=== PATIENT | male | born 1980 | race Two or more races ===

== ENCOUNTER → 2016-10-16 | Outpatient (CLI) | payer MEDICARE, MEDICAID ==
--- NOTE | 2016-10-16 17:10 | CR ---
EXAMINATION: Pelvis and right hip HISTORY: Osteoarthritis COMPARISON: 06/27/2016 TECHNIQUE: AP view of the pelvis and 2 views of the right hip FINDINGS: Mildly increased sclerosis is noted within the right femoral head, grossly unchanged. Mild subchondral sclerosis noted within the right acetabulum. There is an os acetabuli versus previous s uperior rim injury on the left, unchanged. Bilateral posterior fusion hardware noted. IMPRESSION: 1. Stable sclerotic changes within the proximal right femur with early degenerative changes within t he right hip.
== END ==
LOC: MW.CHORTHO 07:55
PROVIDERS: ATTEND Orthopaedic Surgery
DX: M16.11 Unilateral primary osteoarthritis, right hip (principal)
CPT/HCPCS: 73502; G0463

== ENCOUNTER 2017-02-27 20:32 | Emergency (ER) | payer MEDICARE, MEDICAID ==
--- NOTE | 2017-02-27 21:09 | EDM.PDOC ---
ED HPI GENERAL MEDICAL PROBLEM - General Chief Complaint: ENT Problem Stated Complaint: PAIN EAR CANAL Time Seen by Provider: 02/27/17 20:45 Source of Information: Reports: Patient History Limitations: Reports: No Limitations - History of Present Illness INITIAL COMMENTS - FREE TEXT/NARRATIVE: History of present illness: [36-year-old male presenting with complaints of something crawling in his ear, ear pain on the left indicating that this is going for a few days and it has gotten worse and he is concerned.] Review of systems: As per history of present illness and below otherwise all systems reviewed and negative. Past medical history: As per history of present illness and as reviewed below otherwise noncontributory. Surgical history: As per history of present illness and as reviewed below otherwise noncontributory. Social history: No reported history of drug or alcohol abuse. Family history: As per history of present illness and as reviewed below otherwise noncontributory. Physical exam: HEENT: Atraumatic, normocephalic, pupils reactive, negative for conjunctival pallor or scleral icterus, mucous membranes moist, left ear canal with significant edema throat clear, neck supple, nontender, trachea midline. Lungs: Clear to auscultation, breath sounds equal bilaterally, chest nontender. Heart: S1S2, regular, negative for clicks, rubs, or JVD. Abdomen: Soft, nondistended, nontender. Negative for masses or hepatosplenomegaly. Negative for costovertebral tenderness. Pelvis: Stable nontender. Genitourinary: Deferred. Rectal: Deferred. Extremities: Atraumatic, negative for cords or calf pain. Neurovascular unremarkable. Neuro: Awake, alert, oriented. Cranial nerves II through XII unremarkable. Cerebellum unremarkable. Motor and sensory unremarkable throughout. Exam nonfocal. Patient was seen by his PCP yesterday and received a prescription for this same diagnosis of failed to fill it and comes today thinking that we'll diagnosed with something else. Patient was instructed that this is indeed what was going on that the sooner he started taking the medication the quicker it would be relieved. Discussed with patient that even if the canal swelled shut the medicine to passively drain into the ear and it would absorb through the canal which was imperative. Demonstrated ways of getting the liquid through the canal also could be absorbed clear to the TM patient verbalized understanding and could repeat demonstrate the application and indicated he would go now and have medication felt. Diagnostics: [] Therapeutics: [] Impression: [Otitis externa on the left] Plan: [Anabiotic eardrops] Definitive disposition and diagnosis as appropriate pending reevaluation and review of above. Left Ear Pain Score (Numeric/FACES): 5 - Related Data Allergies Allergy/AdvReac Type Severity Reaction Status Date / Time cefazolin sodium [From Ancef] Allergy Hives Verified 02/27/17 20:35 ketorolac [From Toradol] Allergy Itching Verified 02/27/17 20:35 morphine Allergy Other Verified 02/27/17 20:35 Home Meds: Home Meds Metoprolol Succinate [Toprol XL 100mg] 100 mg PO ACBREAKFAST 05/04/14 [History] Omeprazole Magnesium [Prilosec Otc] 20 mg PO BEDTIME 02/14/16 [History] Amitriptyline HCl 100 mg PO BEDTIME 02/23/16 [History] Rosuvastatin Calcium [Crestor] 5 mg PO BEDTIME 02/23/16 [History] Cefuroxime Axetil [Cefuroxime] 250 mg PO BID 04/24/16 [History] oxyCODONE HCl/Acetaminophen [oxyCODONE-Acetaminophen 2.5-325] 7.5 mg PO ASDIRECTED PRN 04/24/16 [History] Aspirin/Calcium Carbonate/Mag [Aspirin Buffered 325 mg Tab] 325 mg PO DAILY #30 tablet 04/26/16 [Rx] Docusate Sodium 100 mg PO BID #28 capsule 04/26/16 [Rx] Indomethacin 25 mg PO BID #42 capsule 04/26/16 [Rx] oxyCODONE ER [OxyCONTIN] 20 mg PO BID PRN #30 tab.er 04/26/16 [Rx] oxyCODONE HCl/Acetaminophen [Percocet 7.5-325 mg Tablet] 1 - 2 each PO Q4HR PRN #80 tablet 04/26/16 [Rx] Past Medical History HEENT History: Reports: None Cardiovascular History: Reports: High Cholesterol, Hypertension, SOB on Exertion Other Cardiovascular History: 'rapid heartbeat" Respiratory History: Reports: Sleep Apnea, SOB Other Respiratory History: CPAP Gastrointestinal History: Reports: GERD Genitourinary History: Reports: Renal Calculus Other Genitourinary History: Pilonidal Cyst excision Musculoskeletal History: Reports: Other (See Below) Other Musculoskeletal History: 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) Neurological History: Reports: Migraines, Other (See Below) Other Neuro History: 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 Both treated with outpatient oral antibiotics - Past Surgical History HEENT Surgical History: Reports: None GI Surgical History: Reports: Hernia, Inguinal Male Surgical History: Reports: Vasectomy Neurological Surgical History: Reports: Lumbar Spine Musculoskeletal Surgical History: Reports: Arthroscopic Procedure, Other (See Below) Social & Family History - Family History Family Medical History: Noncontributory GI: Reports: Pancreatitis : Reports: Renal Calculus Musculoskeletal: Reports: None Hematologic: Reports: None - Tobacco Use Smoking Status *Q: Never Smoker Second Hand Smoke Exposure: Yes - Alcohol Use Days Per Week of Alcohol Use: 0 - Recreational Drug Use Recreational Drug Use: No Drug Use in Last 12 Months: No ED ROS ENT - Review of Systems Review Of Systems: See Below (History of present illness) ED EXAM, ENT - Physical Exam Exam: See Below (See history of present illness) Course - Vital Signs Last Recorded V/S: Last Vital Signs Temp 36.6 C 02/27/17 20:35 Pulse 100 02/27/17 20:35 Resp 16 02/27/17 20:35 BP 116/75 02/27/17 20:35 Pulse Ox 99 02/27/17 20:35 Departure - Departure Time of Disposition: 21:08 Disposition: Home, Self-Care 01 Condition: Good Clinical Impression: Otitis externa - Discharge Information Forms: ED Department Discharge Additional Instructions: The following information is given to patients seen in the emergency department who are being discharged to home. This information is to outline your options for follow-up care. We provide all patients seen in our emergency department with a follow-up referral. The need for follow-up, as well as the timing and circumstances, are variable depending upon the specifics of your emergency department visit. If you don't have a primary care physician on staff, we will provide you with a referral. We always advise you to contact your personal physician following an emergency department visit to inform them of the circumstance of the visit and for follow-up with them and/or the need for any referrals to a consulting specialist. The emergency department will also refer you to a specialist when appropriate. This referral assures that you have the opportunity for follow-up care with a specialist. All of these measure are taken in an effort to provide you with optimal care, which includes your follow-up. Under all circumstances we always encourage you to contact your private physician who remains a resource for coordinating your care. When calling for follow-up care, please make the office aware that this follow-up is from your recent emergency room visit. If for any reason you are refused follow-up, please contact the [facility] Emergency Department at and asked to speak to the emergency department charge nurse. Take medication as directed Follow up with PCP in 1-2 days as discussed Return to ED as needed as discussed
== END 2017-02-27 21:16 | disposition home or self-care (01) ==
LOC: MW.ED 20:32
CPT/HCPCS: 99283

== ENCOUNTER 2017-10-07 11:07 | Emergency (ER) | payer MEDICARE, MEDICAID ==
--- NOTE | 2017-10-07 11:29 | EDM.PDOC ---
ED HPI GENERAL MEDICAL PROBLEM - General Chief Complaint: Lower Extremity Injury/Pain Stated Complaint: LT KNEE HURTS Time Seen by Provider: 10/07/17 11:11 Source of Information: Reports: Patient History Limitations: Reports: No Limitations - History of Present Illness INITIAL COMMENTS - FREE TEXT/NARRATIVE: HISTORY AND PHYSICAL: History of present illness: Patient is a 37 rolled male who presents to the emergency room with complaints of left anterior knee pain. He states approximately 2 weeks ago he hit his knee on the bumper of his truck. Since that time he has had pain with ambulation. Has used Tylenol and ibuprofen [id number] with mild relief. Has had no previous injury or surgeries to the affected extremity. Denies any numbness or tingling to the affected extremity. No localized areas of redness, soft tissue swelling, or tenderness with palpation. Personal medical history of BMOS to right hip, hypertension and elevated cholesterol. Review of systems: As per history of present illness and below otherwise all systems reviewed and negative. Past medical history: As per history of present illness and as reviewed below otherwise noncontributory. Surgical history: As per history of present illness and as reviewed below otherwise noncontributory. Social history: No reported history of drug or alcohol abuse. Family history: As per history of present illness and as reviewed below otherwise noncontributory. Physical exam: General: Well-developed and well-nourished 37 rolled male. Alert and oriented. Nontoxic appearing and in no acute distress. HEENT: Atraumatic, normocephalic, pupils reactive, negative for conjunctival pallor or scleral icterus, mucous membranes moist, throat clear, neck supple, nontender, trachea midline. Lungs: Clear to auscultation, breath sounds equal bilaterally, chest nontender. Heart: S1S2, regular, negative for clicks, rubs, or JVD. Abdomen: Soft, nondistended, nontender. Negative for masses or hepatosplenomegaly. Negative for costovertebral tenderness. Pelvis: Stable nontender. Genitourinary: Deferred. Rectal: Deferred. Extremities: Moves all extremities per self. Full range of motion without difficulty or deficits. No knee instability noted to the affected extremity. Strong pedal pulses bilaterally. Capillary refill less than 3 seconds. Skin is intact, warm, dry -without erythema or bruising. No soft tissue swelling noted. negative for cords or calf pain. Neurovascular unremarkable. Neuro: Awake, alert, oriented. Cranial nerves II through XII unremarkable. Cerebellum unremarkable. Motor and sensory unremarkable throughout. Exam nonfocal. X-ray shows no acute effusion, dislocation or fracture. There is minimal lateral tilting of the patella with small quadricep insertional enthesophyte. Discussed the need for follow-up with orthopedic if he continues to have problems. We'll place the patient in crutches and a knee immobilizer. Although he does have listed allergy to Toradol, he reports that this is only "an itchy nose". He is requesting that we give him an injection at this time. Patient was discharged to home with education. He voices understanding and is agreeable to plan of care. Diagnostics: X-ray left knee Therapeutics: Toradol, knee immobilizer, crutches Impression: Knee injury, left Plan: 1. Please use the knee sleeve and crutches as directed. Tylenol and/or ibuprofen as needed for pain management. Rest, ice, elevate the extremity. 2. As we discussed he may need to follow up with orthopedics for further evaluation of this knee pain. They may want to do further imaging at that time. Call and set up an appointment, the phone number has been provided for you. A referral has been given. 3. Return to the ED as needed and as discussed. Definitive disposition and diagnosis as appropriate pending reevaluation and review of above. Duration: Week(s): Location: Reports: Lower Extremity, Left Left Lower Leg Pain Score (Numeric/FACES): 5 - Related Data Allergies Allergy/AdvReac Type Severity Reaction Status Date / Time cefazolin sodium [From Ancef] Allergy Hives Verified 02/27/17 20:35 ketorolac [From Toradol] Allergy Itching Verified 02/27/17 20:35 morphine Allergy Other Verified 02/27/17 20:35 Home Meds: Home Meds Metoprolol Succinate [Toprol XL 100mg] 100 mg PO ACBREAKFAST 05/04/14 [History] Omeprazole Magnesium [Prilosec Otc] 20 mg PO BEDTIME 02/14/16 [History] Amitriptyline HCl 100 mg PO BEDTIME 02/23/16 [History] Rosuvastatin Calcium [Crestor] 5 mg PO BEDTIME 02/23/16 [History] oxyCODONE HCl/Acetaminophen [oxyCODONE-Acetaminophen 2.5-325] 7.5 mg PO ASDIRECTED PRN 04/24/16 [History] Docusate Sodium 100 mg PO BID #28 capsule 04/26/16 [Rx] oxyCODONE ER [OxyCONTIN] 20 mg PO BID PRN #30 tab.er 04/26/16 [Rx] oxyCODONE HCl/Acetaminophen [Percocet 7.5-325 mg Tablet] 1 - 2 each PO Q4HR PRN #80 tablet 04/26/16 [Rx] Past Medical History HEENT History: Reports: None Cardiovascular History: Reports: High Cholesterol, Hypertension, SOB on Exertion Other Cardiovascular History: 'rapid heartbeat" Respiratory History: Reports: Sleep Apnea, SOB Other Respiratory History: CPAP Gastrointestinal History: Reports: GERD Genitourinary History: Reports: Renal Calculus Other Genitourinary History: Pilonidal Cyst excision Musculoskeletal History: Reports: Other (See Below) Other Musculoskeletal History: 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) Neurological History: Reports: Migraines, Other (See Below) Other Neuro History: 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 Both treated with outpatient oral antibiotics - Past Surgical History HEENT Surgical History: Reports: None GI Surgical History: Reports: Hernia, Inguinal Male Surgical History: Reports: Vasectomy Neurological Surgical History: Reports: Lumbar Spine Musculoskeletal Surgical History: Reports: Arthroscopic Procedure, Other (See Below) Social & Family History - Family History Family Medical History: Noncontributory GI: Reports: Pancreatitis : Reports: Renal Calculus Musculoskeletal: Reports: None Hematologic: Reports: None - Tobacco Use Smoking Status *Q: Never Smoker Second Hand Smoke Exposure: Yes - Alcohol Use Days Per Week of Alcohol Use: 0 - Recreational Drug Use Recreational Drug Use: No Drug Use in Last 12 Months: No Review of Systems - Review of Systems Review Of Systems: ROS reveals no pertinent complaints other than HPI. ED EXAM, GENERAL - Physical Exam Exam: See Below (See dictation) Course - Vital Signs Last Recorded V/S: Last Vital Signs Temp 97.7 F 10/07/17 11:19 Pulse 95 10/07/17 11:19 Resp 18 10/07/17 11:19 BP 136/80 10/07/17 11:19 Pulse Ox 96 10/07/17 11:19 Departure - Departure Time of Disposition: 11:55 Disposition: Home, Self-Care 01 Clinical Impression: Knee injury Qualifiers: Encounter type: initial encounter Laterality: left Qualified Code(s): S89.92XA - Unspecified injury of left lower leg, initial encounter - Discharge Information Referrals: Aysha Foreman DO [Primary Care Provider] - Forms: ED Department Discharge Additional Instructions: My general discharge The following information is given to patients seen in the emergency department who are being discharged to home. This information is to outline your options for follow-up care. We provide all patients seen in our emergency department with a follow-up referral. The need for follow-up, as well as the timing and circumstances, are variable depending upon the specifics of your emergency department visit. If you don't have a primary care physician on staff, we will provide you with a referral. We always advise you to contact your personal physician following an emergency department visit to inform them of the circumstance of the visit and for follow-up with them and/or the need for any referrals to a consulting specialist. The emergency department will also refer you to a specialist when appropriate. This referral assures that you have the opportunity for follow-up care with a specialist. All of these measure are taken in an effort to provide you with optimal care, which includes your follow-up. Under all circumstances we always encourage you to contact your private physician who remains a resource for coordinating your care. When calling for follow-up care, please make the office aware that this follow-up is from your recent emergency room visit. If for any reason you are refused follow-up, please contact the [facility] Emergency Department at and asked to speak to the emergency department charge nurse. [facility] [address] [place] [address], [address] [place] [address] 1. Please use the knee immobilizer and crutches as directed. Tylenol and/or ibuprofen as needed for pain management. Rest, ice, elevate the extremity. 2. As we discussed he may need to follow up with orthopedics for further evaluation of this knee pain. They may want to do further imaging at that time. Call and set up an appointment, the phone number has been provided for you. A referral has been given. 3. Return to the ED as needed and as discussed.
--- NOTE | 2017-10-07 11:48 | CR ---
EXAMINATION: Left knee HISTORY: Pain COMPARISON: 07/25/2015 TECHNIQUE: 3 views FINDINGS/IMPRESSION: There is no acute osseous abnormality, effusion, dislocation, or fracture.. Mine ralization and joint spaces are preserved. Minimal lateral tilting of the patella with a small chacorta ceps insertional enthesophyte.
[2017-10-07] MEDS ORDERED: Ketorolac 60 MG/2 ML SDV IM ONE (11:59)
[2017-10-07 12:39] VITALS: BP 122/76
== END 2017-10-07 12:36 | disposition home or self-care (01) ==
LOC: MW.ED 11:07
DX: S89.92XA Unspecified injury of left lower leg, initial encounter (principal); I10 Essential (primary) hypertension; E78.00 Pure hypercholesterolemia, unspecified; G47.30 Sleep apnea, unspecified; F32.9 Major depressive disorder, single episode, unspecified; E11.9 Type 2 diabetes mellitus without complications; Z77.22 Contact with and (suspected) exposure to environmental tobacco smoke (acute) (chronic); Z88.1 Allergy status to other antibiotic agents; Z88.5 Allergy status to narcotic agent; W22.8XXA Striking against or struck by other objects, initial encounter
CPT/HCPCS: 73562; 96372; 99283; J1885

== ENCOUNTER 2018-05-02 11:52 | Day surgery (SDC) | payer MEDICARE, MEDICAID ==
[~2018-05-02 11:52] MED LIST: Clindamycin Phosphate in D5W 900 MG in Premix Bag 1 BAG IV ONE
[2018-05-02] MEDS ORDERED: Bupivacaine 0.5% 30 ML SDV ONE (12:06)
--- NOTE | 2018-05-02 12:32 | PCM.PREANE ---
Preanesthetic Assessment - Anesthesia/Transfusion/Family Hx Anesthesia History: Prior Anesthesia Without Reaction Other Type of Anesthesia Reaction Comment: Denies any known problem in the past Family History of Anesthesia Reaction: No Transfusion History: No Prior Transfusion(s) - Review of Systems General: No Symptoms Pulmonary: No Symptoms Cardiovascular: No Symptoms Gastrointestinal: No Symptoms Neurological: No Symptoms Other: Reports: None - Physical Assessment NPO Status Date: 05/01/18 Height: 1.65 m Weight: 102.965 kg ASA Class: 2 Mental Status: Alert & Oriented x3 Airway Class: Mallampati = 1 Dentition: Reports: Normal Dentition ROM/Head Extension: Full Lungs: Clear to Auscultation, Normal Respiratory Effort Cardiovascular: Regular Rate, Regular Rhythm - Allergies Allergies/Adverse Reactions: Allergies Allergy/AdvReac Type Severity Reaction Status Date / Time cefazolin sodium [From [facility]] Allergy Hives Verified 04/29/18 10:24 morphine Allergy Other Verified 04/29/18 10:24 tramadol Allergy "itchy Verified 04/29/18 10:24 nose" - Blood Blood Available: No - Acknowledgements Anesthesia Type Planned: General Anesthesia Pt an Appropriate Candidate for the Planned Anesthesia: Yes Alternatives and Risks of Anesthesia Discussed w Pt/Guardian: Yes Pt/Guardian Understands and Agrees with Anesthesia Plan: Yes Additional Comments: PMH: DM@-diet controlled, HTN, HLD, FANI-uses CPAP, chronic pain-with chronic narcotic use/tolerance. PLAN: spinal with light GA for sedation. 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), uses cane Neurological History: Reports: Migraines, Other (See Below) Other Neuro History: 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 Both treated with outpatient oral antibiotics - Past Surgical History Head Surgeries/Procedures: Reports: None HEENT Surgical History: Reports: None Cardiovascular Surgical History: Reports: Other (See Below) Other Cardiovascular Surgeries/Procedures: shunt in R hip GI Surgical History: Reports: Hernia, Inguinal Other GI Surgeries/Procedures: L groin hernia repair, excision of pilonidal cyst Male Surgical History: Reports: Vasectomy Other Male Surgeries/Procedures: vasectomy Neurological Surgical History: Reports: Lumbar Spine, Spinal Fusion Other Neurological Surgeries/Procedures: lower Lumbar intrabody fusion with plate, Musculoskeletal Surgical History: Reports: Arthroscopic Procedure, Other (See Below) Other Musculoskeletal Surgeries/Procedures:: surgery on right fx ulna, rt hip surgery, Dermatological Surgical History: Reports: None - SUBSTANCE USE Smoking Status *Q: Never Smoker Recreational Drug Use History: No - HOME MEDS Home Medications: Home Meds Metoprolol Succinate [Toprol XL 100mg] 100 mg PO BEDTIME 05/04/14 [History] Omeprazole Magnesium [Prilosec Otc] 20 mg PO BEDTIME 02/14/16 [History] Amitriptyline HCl 100 mg PO BEDTIME 02/23/16 [History] Rosuvastatin Calcium [Crestor] 5 mg PO BEDTIME 02/23/16 [History] oxyCODONE ER [OxyCONTIN] 20 mg PO BID PRN #30 tab.er 04/26/16 [Rx] ClonazePAM [KlonoPIN] 0.5 mg PO ACLUNCH PRN 04/29/18 [History] Lisinopril 2.5 mg PO BEDTIME 04/29/18 [History] oxyCODONE HCl/Acetaminophen [Endocet 10-325 mg Tablet] 1 tab PO ASDIRECTED PRN 04/29/18 [History] - CURRENT (IN HOUSE) MEDS Current Meds: Current Medications Discontinued Medications Bupivacaine HCl (Marcaine 0.5%) Confirm Administered Dose 30 ml .ROUTE .STK-MED ONE Stop: 09/14/18 12:07 Clindamycin Phosphate 900 mg/ (Premix) 50 mls @ 100 mls/hr IV ONETIME ONE Stop: 05/02/18 08:00
[2018-05-02] MEDS ORDERED: Ondansetron 4 MG/2 ML SDV ONE (12:33)
[2018-05-02] MEDS ORDERED: Lidocaine 2% 5 ML SDV ONE (12:33)
[2018-05-02] MEDS ORDERED: Glycopyrrolate 0.2 MG/ML SDV ONE (12:33)
[2018-05-02] MEDS ORDERED: Ketorolac 30 MG/ML SDV ONE (12:33)
[2018-05-02] MEDS ORDERED: Clindamycin Phosphate in D5W 50 ML IV ONE (12:34)
[2018-05-02] MEDS ORDERED: Propofol 200 MG/20 ML SDV ONE (12:43)
[2018-05-02] MEDS ORDERED: fentaNYL 100 MCG/2 ML SDV ONE ×2 (12:44→14:50)
[2018-05-02] MEDS ORDERED: Midazolam 1 MG/ML 2 ML SDV ONE ×2 (12:44)
[2018-05-02] MEDS ORDERED: Desflurane 240 ML Bottle ONE (13:08)
[2018-05-02] MEDS ORDERED: Lactated Ringers 1,000 ML IV SCH (13:15)
[2018-05-02] MEDS ORDERED: Phenylephrine/Normal Saline 100 MCG/ML 10 ML Syringe ONE ×2 (13:33→14:23)
[2018-05-02] MEDS ORDERED: Lidocaine 1% 20 ML MDV ONE (13:59)
[2018-05-02] MEDS ORDERED: ClonazePAM 0.5 MG Tab PO PRN (16:41)
[2018-05-02] MEDS ORDERED: Acetaminophen/oxyCODONE 325-10 MG Tab PO PRN (16:41)
[2018-05-02] MEDS ORDERED: oxyCODONE ER 20 MG TAB.ER PO PRN (16:41)
[2018-05-02] MEDS ORDERED: diphenhydrAMINE 25 MG Cap PO PRN (16:43)
[2018-05-02] MEDS ORDERED: Ondansetron 4 MG/2 ML SDV IV PRN (16:43)
[2018-05-02] MEDS ORDERED: Aluminum Hydroxide/Magnesium Hydroxide/Simethicone Susp 30 ML Cup PO PRN (16:43)
[2018-05-02] MEDS ORDERED: Bisacodyl 10 MG Supp RECTAL PRN (16:43)
--- NOTE | 2018-05-02 16:43 | PCM.OPNOTE ---
- General Post-Op/Procedure Note Date of Surgery/Procedure: 05/02/18 Operative Procedure(s): left hip scope, acetabuloplasty, os excision, femoroplasty, ligamentum teres debridement, core decompression femoral head with bone grafting. left knee scope, syndovectomy, percutaneous fixation of medial femoral condyle subchondral insufficiency fx Pre Op Diagnosis: left hip LISA, labral tear, os, primary bone marrow edema syndrome, left knee plica with medial femoral condyle subchondral insufficiency fx Post-Op Diagnosis: same plus ligamentum teres tear Anesthesia Technique: General ET Tube, Spinal Primary Surgeon: Lucas Villegas Mai [place] Painter: Corina Aranda in mLs: 10 Condition: Good
[2018-05-02] MEDS ORDERED: HYDROmorphone 2 MG/ML SDV IVPUSH PRN (16:49)
--- NOTE | 2018-05-02 17:13 | PCM.POSTAN ---
POST ANESTHESIA ASSESSMENT - MENTAL STATUS Mental Status: Alert, Oriented - RESPIRATORY Respiratory Status: Respiratory Rate WNL, Airway Patent, O2 Saturation Stable - CARDIOVASCULAR CV Status: Pulse Rate WNL, Blood Pressure Stable - GASTROINTESTINAL GI Status: No Symptoms - PAIN Pain Score: 5 - POST OP HYDRATION Hydration Status: Adequate & Stable
[2018-05-02] MEDS: fentaNYL 100 MCG/2 ML SDV IVPUSH PRN ×2 (17:16→17:22)
[2018-05-02] MEDS: Lactated Ringers 1,000 ML IV SCH (17:53)
[2018-05-02] MEDS: HYDROmorphone 1 MG/ML Syringe IVPUSH PRN (18:49)
[2018-05-02] MEDS: Docusate Sodium 100 MG Cap PO SCH (20:51)
[2018-05-02] MEDS ORDERED: Lisinopril 5 MG Tab PO SCH (21:00)
[2018-05-02] MEDS ORDERED: Omeprazole 20 MG Cap.CR PO SCH (21:00)
[2018-05-02] MEDS ORDERED: Metoprolol Succinate 100 MG Tab.ER PO SCH (21:00)
[2018-05-02] MEDS ORDERED: Rosuvastatin 10 MG Tab PO SCH (21:00)
[2018-05-02] MEDS ORDERED: Amitriptyline 25 MG Tab PO SCH (21:00)
[2018-05-02] MEDS: Ketorolac 30 MG/ML SDV IVPUSH PRN (22:45)
--- NOTE | 2018-05-03 01:44 | OR ---
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 OPERATION PERFORMED: Left hip arthroscopy. Acetabuloplasty with os excision and labral debridement. Femoral plasty, core decompression with bone grafting of femoral head. Left knee arthroscopy with partial synovectomy of medial plica and internal fixation of medial femoral condyle subchondral insufficiency fracture. ANESTHESIA: Spinal and general. COMPLICATION: None. ESTIMATED BLOOD LOSS: 10 mL. SPECIMENS: None. IMPLANTS: Alexus [employer] AccuFill 2.5 mL medial femoral condyle and 5 mL femoral head. INDICATIONS: The patient is a 38-year-old male with above diagnosis. He has had previous surgery on his right hip. He understands the risks, benefits, and complications including not limited to, infection, neurovascular injury, continued pain, and other symptoms, microinstability, heterotopic ossification, testicular numbness, and he wished to proceed. DESCRIPTION OF PROCEDURE: The patient was seen in the preoperative area. Operative extremity was marked with the patient. He was transferred to the operating room. A spinal anesthetic was given. He was placed supine on the operating table. General anesthesia was induced. An LMA was placed. He received preop antibiotics with clindamycin. First, the knee was paid attention to. The left knee was prepped and draped in sterile fashion using alcohol followed by ChloraPrep. A formal time-out was taken to identifying correct patient, procedure, and extremity. Primary anterolateral portal was established just lateral to the patellar tendon and the arthroscope was introduced into the patellofemoral joint. Anterior medial portal was established with spinal needle and stab incision. There was noted be a plica in the lateral joint, a small plica with synovitis in this area. Patellofemoral joint was normal. The medial joint showed grade 2 chondromalacia of an area of the medial femoral condyle about 5 x 15 mm extending anterior to posteriorly. The medial meniscus and tibial plateau were normal. The ACL was normal. There was a small amount of synovitis around it. This was cleaned up with shaver, lateral joint was completely divided with no chondromalacia and normal meniscus. At this point, through the anteromedial portal, a 15-gauge AccuPort cannula was introduced and was drilled into the anterior aspect of the cartilage defect and then 2.5 mL of AccuFill after mixing was injected, this was allowed to harden and then the shaver was used after viewing from anterior medial to debride the plica anterior medially back to stable area. The knee was then drained and closed with nylon. Xeroform and sterile dressing applied. Then the patient was placed into the leg bars on the Min and Nephew traction table. The left hip was prepped and draped in sterile fashion using alcohol and ChloraPrep. A time-out was taken identifying correct patient, procedure, and extremity. First, incision was made lateral on the femur and an 8-gauge Alexus Accu Port cannula was introduced into the posterior- superior aspect of the femoral head based on the area of maximal bone marrow edema syndrome after drilling 3-4 times into the area to get a core decompression. Later on during the case, 5 mL of AccuFill was injected after point of traction. There was no extravasation. Under fluoroscopic control, primary anterolateral, anterior medial, and DALA portals were established without pulling traction and introduced into the area above the hip. The indirect head of the rectus was found and a shaver was used to open up the interval between the gluteus minimus and iliocapsularis. It was going to be there was lots of bleeding and hemostasis was obtained. Then the capsule was cut longitudinally from near the intertrochanteric line up to the joint lateral to the anterior-inferior iliac spine to preserve the iliofemoral ligament. Upon entering the joint, there was noted to be synovitis and then traction was pulled up. It was peeled off, the acetabulum was small and palpable posteriorly. A synovectomy was performed in the joint. The labrum was debrided. There was a large labral tear and a large os acetabuli and this was then burred down removing the entire os acetabuli. There was a large ligamentum teres tear which was also debrided thoroughly. There were essentially normal femoral head and acetabular cartilage. All synovitis was removed. Traction was then released. The femoral plasty was performed removing 3-4 mm; however, the bone was very friable and soft and bled constantly. After adequate femoroplasty going from the 10 o'clock to 4:30 position, the indirect head of the rectus was attempted to be dissected out as there was probably about 2-3 mm of labrum remaining; however, due to continued bleeding, decision was made to not to do labral reconstruction because of the small amount of labrum left and the intense amount of bleeding. Traction was then released and then the capsule was closed with three [id number] #2 sutures with the Min and Nephew SpeedStitch device. Arthroscope was then removed. Portals closed with Vicryl and nylon. Xeroform and sterile dressing applied. Patient was extubated in the operative room and transferred to recovery room in stable condition. Sponge and needle counts were correct at the end of the case. No complications. PLAN: The patient will weight bear as tolerated with crutches. JESSICA / KEMAL /[id number]
[2018-05-03] MEDS: HYDROmorphone 1 MG/ML Syringe IVPUSH PRN ×2 (02:33→08:38)
[2018-05-03] MEDS: Lactated Ringers 1,000 ML IV SCH (03:57)
[2018-05-03] MEDS: Ketorolac 30 MG/ML SDV IVPUSH PRN (06:15)
--- NOTE | 2018-05-03 06:50 | PCM48HPAN ---
Post Anesthesia Note - EVALUATION WITHIN 48HRS OF ANESTHETIC Vital Signs in Normal Range: Yes Patient Participated in Evaluation: Yes Respiratory Function Stable: Yes Airway Patent: Yes Cardiovascular Function Stable: Yes Hydration Status Stable: Yes Pain Control Satisfactory: Yes Nausea and Vomiting Control Satisfactory: Yes Mental Status Recovered: Yes Pulse Rate: 118 Resp Rate: 20 Blood Pressure: 125/79
--- NOTE | 2018-05-03 08:25 | PCM.SN ---
- Free Text/Narrative Note: S: lots of pain with throbbing. dressing saturated O Afebrile, vital signs stable dressing saturated at hip, knee clean/dry/intact normal sensation and motor distally, palpable pedal pulse A/P: POD #1 left hip and knee scope - full weight bearing with crutches - indomethacin for HO prophylaxis - home today, will increase home dose of oxycontin.
[2018-05-03] MEDS ORDERED: Sodium Chloride 0.9% 10 ML Syringe FLUSH PRN (08:29)
[2018-05-03] MEDS ORDERED: Sodium Chloride 0.9% 2.5 ML Syringe FLUSH PRN (08:29)
[2018-05-03] MEDS: Docusate Sodium 100 MG Cap PO SCH (08:37)
[2018-05-03] MEDS ORDERED: Aspirin 325 MG Tab.EC PO SCH (09:00)
[2018-05-03 14:41] VITALS: BP 124/75
--- NOTE | 2018-05-05 15:59 | CR ---
EXAMINATION: Left hip HISTORY: Arthroscopy COMPARISON: None TECHNIQUE: 4 images provided FINDINGS/IMPRESSION: Operative control films demonstrate instrumentation projecting over the left hip .
== END 2018-05-03 15:00 | disposition home or self-care (01) ==
LOC: MW.SDS 11:52 → MW.MS 16:38 → MW.SDS 05-03 15:00
PROVIDERS: ATTEND Orthopaedic Surgery
DX: M84.452A Pathological fracture, left femur, initial encounter for fracture (principal); M25.852 Other specified joint disorders, left hip; S73.112A Iliofemoral ligament sprain of left hip, initial encounter; M67.52 Plica syndrome, left knee; S73.102A Unspecified sprain of left hip, initial encounter; M94.262 Chondromalacia, left knee; M65.862 Other synovitis and tenosynovitis, left lower leg; I10 Essential (primary) hypertension; E11.9 Type 2 diabetes mellitus without complications; Z68.37 Body mass index [BMI] 37.0-37.9, adult; E78.00 Pure hypercholesterolemia, unspecified; G47.33 Obstructive sleep apnea (adult) (pediatric); Z79.899 Other long term (current) drug therapy; Z88.5 Allergy status to narcotic agent; Z88.1 Allergy status to other antibiotic agents; Z99.89 Dependence on other enabling machines and devices
CPT/HCPCS: 29855; 29914; 29915; 76001; 97161; A9270; J1170; J1885; J2250; J2370; J2405; J2704; J3010; J3490; J7120

== ENCOUNTER 2019-01-28 23:59 | Emergency (ER) | payer MEDICARE, MEDICAID ==
--- NOTE | 2019-01-29 00:42 | EDM.PDOC ---
ED HPI GENERAL MEDICAL PROBLEM - General Chief Complaint: Upper Extremity Injury/Pain Stated Complaint: SPLINTER IN HAND AND DIABETIC Time Seen by Provider: 01/29/19 00:26 - History of Present Illness INITIAL COMMENTS - FREE TEXT/NARRATIVE: HISTORY AND PHYSICAL: History of present illness: The patient is a 38-year-old male who presents with concerns about a retained piece of wood in his left hand in the area of the first web space. The patient says that 2 days ago he was carrying somewhat which slipped and a splinter got into his left hand. The patient says that he pulled out the visible part and thought that he had gotten it all out but then started having pain to the area and was concerned about a retained fragment. He says that when he squeezes on the web space area he can feel it. The patient states his last tetanus shot was 3 years ago and he is a prediabetic is likely going to be going on medications soon per his so they were concerned about infection. The areas on the skin , the puncture wounds, have sealed up and are not with any redness and he can use the hand but he says that there is discomfort. He is here because he would like to have the wood removed. The patient is right-hand dominant Review of systems: As per history of present illness and below otherwise all systems reviewed and negative. Past medical history: As per history of present illness and as reviewed below otherwise noncontributory. Surgical history: As per history of present illness and as reviewed below otherwise noncontributory. Social history: No reported history of drug or alcohol abuse. Family history: As per history of present illness and as reviewed below otherwise noncontributory. Physical exam: General: Well-developed well-nourished man who is nontoxic and vital signs are noted by me HEENT: Atraumatic, normocephalic, negative for conjunctival pallor or scleral icterus, mucous membranes moist, throat clear, neck supple, nontender, trachea midline. Lungs: Clear to auscultation, breath sounds equal bilaterally, chest nontender. Heart: S1S2, regular rhythm slightly tachycardic rate of my evaluation no overt murmurs Abdomen: Soft, nondistended, nontender. NABS Pelvis: Deferred Genitourinary: Deferred. Rectal: Deferred. Extremities: Atraumatic, full range of motion of all extremities with the exception of the palmar surface of the left hand at the first web space where there are 2 small scabbed puncture rojas seen that are clean and dry without any erythema and there is no gross soft tissue swelling in this region. On palpation the patient tells me that he can specifically feel the foreign body but I cannot appreciate that and the only thing I can feel some induration tissue which is very deep in the Web space . The foreign body is not in a superficial location and there is no fullness or fluctuance in this web space and no streaking. The remainder of the hand has no tenderness defects or deformities and no redness or soft tissue swelling. He has full flexion and extension at all digits including the thumb and opposition is also intact versus resistance Neurovascular unremarkable. Also note that there is a Band- Aid on the tip of the thumb which the patient says is from a separate injury where he cut himself kitchen. He does not want evaluation for this Neuro: Awake, alert, oriented. Cranial nerves II through XII unremarkable. Cerebellum unremarkable. Motor and sensory unremarkable throughout. Exam nonfocal. Diagnostics: X-ray left hand Therapeutics: I discussed with the patient that we would cover him with antibiotics but at this point I do not appreciate that the foreign body is in a superficial location and actually on my exam do not appreciate the foreign body at all but if it is present it is deep in the web space and I do not feel comfortable trying to blindly open this area and dissecting, trying to attempt to find something that I cannot palpate. He is aware that this web space area is prone to infection and he will need to be covered with antibiotics but I do not feel comfortable blindly searching for this. He is aware that it could migrate outward on its own but if he continues to have discomfort over the next several days he can schedule a follow-up appointment with a hand specialist who can do this in a controlled fashion in a sterile environment. He has full function of his thumb and hand and there is no critical need for emergent removal. He also is aware that because this wound is 2 days old the body tends to try to encapsulate foreign objects which would make it harder for excision and removal. The patient and at bedside are accepting of this conversation and we will do a quick x-ray to see if the FB is visible and I will give him those referrals. The examination currently does not have any sign of active infection. I will give him Augmentin for home as he says he is only allergic to the Ancef Impression: Retained foreign body of left hand Definitive disposition and diagnosis as appropriate pending reevaluation and review of above. left hand Pain Score (Numeric/FACES): 3 - Related Data Allergies Allergy/AdvReac Type Severity Reaction Status Date / Time cefazolin sodium [From Ancef] Allergy Hives Verified 01/29/19 00:14 morphine Allergy Other Verified 01/29/19 00:14 tramadol Allergy "itchy Verified 01/29/19 00:14 nose" Home Meds: Home Meds Metoprolol Succinate [Toprol XL 100mg] 100 mg PO DAILY 05/04/14 [History] Omeprazole Magnesium [Prilosec Otc] 20 mg PO DAILY 02/14/16 [History] Amitriptyline HCl 100 mg PO DAILY 02/23/16 [History] Rosuvastatin Calcium [Crestor] 10 mg PO BEDTIME 02/23/16 [History] Lisinopril 2.5 mg PO BEDTIME 04/29/18 [History] oxyCODONE HCl/Acetaminophen [Endocet 10-325 mg Tablet] 10 mg PO ASDIRECTED PRN 04/29/18 [History] oxyCODONE ER [OxyCONTIN] 10 mg PO ASDIRECTED PRN 01/29/19 [History] Past Medical History HEENT History: Reports: Allergic Rhinitis, Impaired Vision, Other (See Below) Other HEENT History: wears glasses Cardiovascular History: Reports: High Cholesterol, Hypertension Other Cardiovascular History: 'rapid heartbeat" Respiratory History: Reports: Sleep Apnea Other Respiratory History: uses CPAP Gastrointestinal History: Reports: GERD Genitourinary History: Reports: Renal Calculus Musculoskeletal History: Reports: Back Pain, Chronic, Fracture, Osteoarthritis, Other (See Below) Other Musculoskeletal History: 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), uses cane Neurological History: Reports: Migraines, Other (See Below) Other Neuro History: 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 Both treated with outpatient oral antibiotics - Past Surgical History HEENT Surgical History: Reports: None Cardiovascular Surgical History: Reports: Other (See Below) Other Cardiovascular Surgeries/Procedures: shunt in R hip GI Surgical History: Reports: Hernia, Inguinal Other GI Surgeries/Procedures: L groin hernia repair, excision of pilonidal cyst Male Surgical History: Reports: Vasectomy Other Male Surgeries/Procedures: vasectomy Neurological Surgical History: Reports: Lumbar Spine, Spinal Fusion Other Neurological Surgeries/Procedures: lower Lumbar intrabody fusion with plate, Musculoskeletal Surgical History: Reports: Arthroscopic Procedure, Other (See Below) Other Musculoskeletal Surgeries/Procedures:: surgery on right fx ulna, rt hip surgery, Dermatological Surgical History: Reports: None Social & Family History - Family History Family Medical History: Noncontributory GI: Reports: Pancreatitis : Reports: Renal Calculus Musculoskeletal: Reports: None Hematologic: Reports: None - Tobacco Use Smoking Status *Q: Never Smoker - Caffeine Use Caffeine Use: Reports: None - Recreational Drug Use Recreational Drug Use: No Review of Systems - Review of Systems Review Of Systems: ROS reveals no pertinent complaints other than HPI. ED EXAM, GENERAL - Physical Exam Exam: See Below (See dictation) Course - Vital Signs Last Recorded V/S: Last Vital Signs Temp 36.1 C 01/29/19 00:10 Pulse 118 H 01/29/19 00:10 Resp 16 01/29/19 00:10 BP 126/93 H 01/29/19 00:10 Pulse Ox 94 L 01/29/19 00:10 - Orders/Labs/Meds Orders: Active Orders 24 hr Category Date Time Status Hand Comp Min 3V Lt [CR] Stat Exams 01/29/19 00:36 Taken Departure - Departure Time of Disposition: 01:03 Disposition: Home, Self-Care 01 Condition: Good Clinical Impression: Retained foreign body of hand - Discharge Information Referrals: Aysha Foreman DO [Primary Care Provider] - Forms: ED Department Discharge Additional Instructions: The following information is given to patients seen in the emergency department who are being discharged to home. This information is to outline your options for follow-up care. We provide all patients seen in our emergency department with a follow-up referral. The need for follow-up, as well as the timing and circumstances, are variable depending upon the specifics of your emergency department visit. If you don't have a primary care physician on staff, we will provide you with a referral. We always advise you to contact your personal physician following an emergency department visit to inform them of the circumstance of the visit and for follow-up with them and/or the need for any referrals to a consulting specialist. The emergency department will also refer you to a specialist when appropriate. This referral assures that you have the opportunity for followup care with a specialist. All of these measure are taken in an effort to provide you with optimal care, which includes your followup. Under all circumstances we always encourage you to contact your private physician who remains a resource for coordinating your care. When calling for followup care, please make the office aware that this follow-up is from your recent emergency room visit. If for any reason you are refused follow-up, please contact the [facility] emergency department at and ask to speak to the emergency department charge nurse. Dr. Jonathan Durand [facility] [address] [id number] @ Dr French & Dr Waller [facility] [address] [facility] [id number] @ [facility] [address] [id number] Please do not manipulate the area or try to poke and remove the foreign object. Please call and schedule a follow-up appointment with one of our hand specialists using resources given to above. (Our hand specialist is on maternity leave and will not be back or 2 months). The foreign object may migrate out independently over the next several weeks but if you feel that there is persistent pain or you have concerns then please see the hand specialist for removal. The closest of the hand specialists listed above are the doctors at [facility]. Return to ER as needed and as discussed. Please take antibiotics as directed--- have been given Augmentin from [facility] - My Orders Last 24 Hours: My Active Orders 01/29/19 00:36 Hand Comp Min 3V Lt [CR] Stat - Assessment/Plan Last 24 Hours: My Active Orders 01/29/19 00:36 Hand Comp Min 3V Lt [CR] Stat
--- NOTE | 2019-01-29 01:04 | CR ---
Indication: Splinter in soft tissues Technique: Three views of the left hand Comparison: None available Findings: Bones: Alignment is normal. No fractures or bone lesions. Joint spaces: Unremarkable. Soft tissues: No radiopaque soft tissue foreign body seen. Impression: No acute fracture or dislocation. No radiopaque foreign body seen. Dictated by Phil Talley MD @ 01/29/2019 1:02:43 AM Dictated by: Phil Talley MD @ 01/29/2019 01:02:46 (Electronically Signed)
[2019-01-29] MEDS ORDERED: Bacitracin Oint 1 GM U/D Packet TOP ONE (01:38)
[2019-01-29 01:50] VITALS: BP 119/85
== END 2019-01-29 01:50 | disposition home or self-care (01) ==
LOC: MW.ED 23:59
DX: S61.442A Puncture wound with foreign body of left hand, initial encounter (principal); E78.00 Pure hypercholesterolemia, unspecified; G47.30 Sleep apnea, unspecified; I10 Essential (primary) hypertension; K21.9 Gastro-esophageal reflux disease without esophagitis; F41.9 Anxiety disorder, unspecified; F32.9 Major depressive disorder, single episode, unspecified; E11.9 Type 2 diabetes mellitus without complications; E66.9 Obesity, unspecified; Z88.5 Allergy status to narcotic agent; Z99.89 Dependence on other enabling machines and devices; Z88.8 Allergy status to other drugs, medicaments and biological substances; Z79.899 Other long term (current) drug therapy
CPT/HCPCS: 10120; 73130; 99283; J2001

== ENCOUNTER 2019-04-20 14:57 | Emergency (ER) | payer MEDICAID, MEDICARE ==
--- NOTE | 2019-04-20 15:15 | EDM.PDOC ---
ED HPI GENERAL MEDICAL PROBLEM - General Chief Complaint: Upper Extremity Injury/Pain Stated Complaint: RIGHT SHOULDER PAIN Time Seen by Provider: 04/20/19 15:02 Source of Information: Reports: Patient History Limitations: Reports: No Limitations - History of Present Illness INITIAL COMMENTS - FREE TEXT/NARRATIVE: HISTORY AND PHYSICAL: History of present illness: Patient is a 39-year-old male presents to the ED today with concern of right shoulder injury that occurred yesterday. Patient states he was playing basketball some friends when he had tripped and fell and rolled on his right shoulder. Patient states he did not have immediate pain but has slowly had increasing pain today. Patient denies hitting his head or loss of consciousness. Patient denies any prior injury to the shoulder any other symptoms or concerns. Patient denies fever, chills, chest pain, shortness of breath, or cough. Denies headache, neck stiff ness, change in vision, syncope, or near syncope. Denies nausea, vomiting, abdominal pain, diarrhea, constipation, or dysuria. Has not noted any blood in urine or stool. Patient has been eating and drinking appropriately. Review of systems: As per history of present illness and below otherwise all systems reviewed and negative. Past medical history: As per history of present illness and as reviewed below otherwise noncontributory. Surgical history: As per history of present illness and as reviewed below otherwise noncontributory. Social history: See social history for further information Family history: As per history of present illness and as reviewed below otherwise noncontributory. Physical exam: General: Patient is alert, oriented, and in no acute distress. Patient sitting comfortably on exam table. HEENT: Atraumatic, normocephalic, pupils equal and reactive bilaterally, negative for conjunctival pallor or scleral icterus, mucous membranes moist, TMs normal bilaterally, throat clear, neck supple, nontender, trachea midline. No drooling or trismus noted. No meningeal signs. No hot potato voice noted. Lungs: Clear to auscultation, breath sounds equal bilaterally, chest nontender. Heart: S1S2, regular rate and rhythm without overt murmur Abdomen: Soft, nondistended, nontender. Negative for masses or hepatosplenomegaly. Negative for costovertebral tenderness. Pelvis: Stable nontender. Genitourinary: Deferred. Rectal: Deferred. Skin: Intact, warm, dry. No lesions or rashes noted. Extremities: Atraumatic, negative for cords or calf pain. Neurovascular unremarkable. No obvious deformity of the right shoulder. Patient has full range of motion of right elbow wrist and digits. Patient has limited range of motion of right shoulder due to pain. Radial pulses grossly intact with capillary refill less than 2 seconds. Neuro: Awake, alert, oriented. Cranial nerves II through XII unremarkable. Cerebellum unremarkable. Motor and sensory unremarkable throughout. Exam nonfocal. Notes: Discussed the importance for follow-up with an orthopedic provider or primary care. Voices understanding and is agreeable to plan of care. Denies any further questions or concerns at this time. Diagnostics: Shoulder XR Therapeutics: Sling Prescription: None Impression: Right shoulder injury Plan: 1. Rest, ice, elevate the affected extremity. You can apply ice 15 minutes on, 15 minutes off. 2. Tylenol and/ or ibuprofen as directed for pain management or discomfort. Take medication as prescribed 3. Follow up with the Orthopedic provider / primary care provider as discussed. Return to the ED as needed and as discussed. Definitive disposition and diagnosis as appropriate pending reevaluation and review of above. right shoulder Pain Score (Numeric/FACES): 6 - Related Data Allergies Allergy/AdvReac Type Severity Reaction Status Date / Time cefazolin sodium [From [facility]] Allergy Hives Verified 01/29/19 00:14 morphine Allergy Other Verified 01/29/19 00:14 tramadol Allergy "itchy Verified 01/29/19 00:14 nose" Home Meds: Home Meds Metoprolol Succinate [Toprol XL 100mg] 100 mg PO DAILY 05/04/14 [History] Omeprazole Magnesium [Prilosec Otc] 20 mg PO DAILY 02/14/16 [History] Amitriptyline HCl 100 mg PO DAILY 02/23/16 [History] Rosuvastatin Calcium [Crestor] 10 mg PO BEDTIME 02/23/16 [History] Lisinopril 2.5 mg PO BEDTIME 04/29/18 [History] oxyCODONE HCl/Acetaminophen [Endocet 10-325 mg Tablet] 10 mg PO ASDIRECTED PRN 04/29/18 [History] oxyCODONE ER [OxyCONTIN] 10 mg PO ASDIRECTED PRN 01/29/19 [History] Past Medical History HEENT History: Reports: Allergic Rhinitis, Impaired Vision, Other (See Below) Other HEENT History: wears glasses Cardiovascular History: Reports: High Cholesterol, Hypertension Other Cardiovascular History: 'rapid heartbeat" Respiratory History: Reports: Sleep Apnea Other Respiratory History: uses CPAP Gastrointestinal History: Reports: GERD Genitourinary History: Reports: Renal Calculus Musculoskeletal History: Reports: Back Pain, Chronic, Fracture, Osteoarthritis, Other (See Below) Other Musculoskeletal History: 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), uses cane Neurological History: Reports: Migraines, Other (See Below) Other Neuro History: 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 Both treated with outpatient oral antibiotics - Past Surgical History HEENT Surgical History: Reports: None Cardiovascular Surgical History: Reports: Other (See Below) Other Cardiovascular Surgeries/Procedures: shunt in R hip GI Surgical History: Reports: Hernia, Inguinal Other GI Surgeries/Procedures: L groin hernia repair, excision of pilonidal cyst Male Surgical History: Reports: Vasectomy Other Male Surgeries/Procedures: vasectomy Neurological Surgical History: Reports: Lumbar Spine, Spinal Fusion Other Neurological Surgeries/Procedures: lower Lumbar intrabody fusion with plate, Musculoskeletal Surgical History: Reports: Arthroscopic Procedure, Other (See Below) Other Musculoskeletal Surgeries/Procedures:: surgery on right fx ulna, rt hip surgery, Dermatological Surgical History: Reports: None Social & Family History - Family History Family Medical History: Noncontributory GI: Reports: Pancreatitis : Reports: Renal Calculus Musculoskeletal: Reports: None Hematologic: Reports: None - Caffeine Use Caffeine Use: Reports: None Review of Systems - Review of Systems Review Of Systems: ROS reveals no pertinent complaints other than HPI. ED EXAM, GENERAL - Physical Exam Exam: See Below (See dictation) Course - Vital Signs Last Recorded V/S: Last Vital Signs Temp 36.2 C 04/20/19 15:11 Pulse 94 04/20/19 15:11 Resp 15 04/20/19 15:11 BP 115/76 04/20/19 15:11 Pulse Ox 96 04/20/19 15:11 - Orders/Labs/Meds Orders: Active Orders 24 hr Category Date Time Status DME for Discharge [COMM] Stat Oth 04/20/19 15:15 Ordered Departure - Departure Time of Disposition: 15:54 Disposition: Home, Self-Care 01 Clinical Impression: Shoulder injury Qualifiers: Encounter type: initial encounter Laterality: right Qualified Code(s): S49.91XA - Unspecified injury of right shoulder and upper arm, initial encounter - Discharge Information Referrals: Aysha Foreman DO [Primary Care Provider] - Forms: ED Department Discharge Additional Instructions: The following information is given to patients seen in the emergency department who are being discharged to home. This information is to outline your options for follow-up care. We provide all patients seen in our emergency department with a follow-up referral. The need for follow-up, as well as the timing and circumstances, are variable depending upon the specifics of your emergency department visit. If you don't have a primary care physician on staff, we will provide you with a referral. We always advise you to contact your personal physician following an emergency department visit to inform them of the circumstance of the visit and for follow-up with them and/or the need for any referrals to a consulting specialist. The emergency department will also refer you to a specialist when appropriate. This referral assures that you have the opportunity for follow-up care with a specialist. All of these measure are taken in an effort to provide you with optimal care, which includes your follow-up. Under all circumstances we always encourage you to contact your private physician who remains a resource for coordinating your care. When calling for follow-up care, please make the office aware that this follow-up is from your recent emergency room visit. If for any reason you are refused follow-up, please contact the [facility] at and asked to speak to the emergency department charge nurse. [facility] [address] [place] [id number] [facility] [address] [place] [address] [facility] [address] [place] [place] [address] [address] Boone, Orthopedist [facility] [address] [place] [address] Dr Zamudio - Dr Smith - Dr Alcaraz [facility] [address] [place] [address] [facility] [address] [place] [address] 1. Rest, ice, elevate the affected extremity. You can apply ice 15 minutes on, 15 minutes off. 2. Tylenol and/ or ibuprofen as directed for pain management or discomfort. Take medication as prescribed 3. Follow up with the Orthopedic provider / primary care provider as discussed. Return to the ED as needed and as discussed. - My Orders Last 24 Hours: My Active Orders 04/20/19 15:15 DME for Discharge [COMM] Stat - Assessment/Plan Last 24 Hours: My Active Orders 04/20/19 15:15 DME for Discharge [COMM] Stat
--- NOTE | 2019-04-20 15:52 | CR ---
INDICATION: Trauma. Fall. Pain. TECHNIQUE: Three views of the right shoulder. FINDINGS: No fracture, dislocation, or intrinsic skeletal lesion. IMPRESSION: Negative three view right shoulder. Dictated by Brandin Farris MD @ Apr 20 2019 3:50PM Signed by Dr. Brandin Farris @ Apr 20 2019 3:51PM
[2019-04-20 17:05] VITALS: BP 106/76
== END 2019-04-20 17:05 | disposition home or self-care (01) ==
LOC: MW.ED 14:57
DX: S49.91XA Unspecified injury of right shoulder and upper arm, initial encounter (principal); I10 Essential (primary) hypertension; E11.9 Type 2 diabetes mellitus without complications; K21.9 Gastro-esophageal reflux disease without esophagitis; E78.00 Pure hypercholesterolemia, unspecified; F41.9 Anxiety disorder, unspecified; F32.9 Major depressive disorder, single episode, unspecified; M19.90 Unspecified osteoarthritis, unspecified site; E66.9 Obesity, unspecified; Z88.1 Allergy status to other antibiotic agents; Z88.5 Allergy status to narcotic agent; Z88.6 Allergy status to analgesic agent; Z79.899 Other long term (current) drug therapy; W01.0XXA Fall on same level from slipping, tripping and stumbling without subsequent striking against object, initial encounter; Y93.67 Activity, basketball
CPT/HCPCS: 73030-26-RT; 73030-RT; 99283; 99283-25

== ENCOUNTER 2020-07-12 21:00 | Emergency (ER) | payer MEDICAID, MEDICARE ==
--- NOTE | 2020-07-12 21:31 | EDM.PDOC ---
ED HPI GENERAL MEDICAL PROBLEM - General Chief Complaint: Upper Extremity Injury/Pain Stated Complaint: RIGHT HAND INJURY Time Seen by Provider: 07/12/20 21:11 Source of Information: Reports: Patient History Limitations: Reports: No Limitations - History of Present Illness INITIAL COMMENTS - FREE TEXT/NARRATIVE: 40-year-old right handed male presents with left hand injury. He was opening a door yesterday and his left index finger was caught in the door handle and hyperabducted his left index finger. He did not seek care at that time. He notes pain to his left distal metacarpal and MCP joint on his index finger, today he noted worsening swelling and discoloration to his left index finger. ROS: A 10-point review of systems, other than pertinent positives and negatives as stated per HPI, is otherwise negative Past medical history: No additional pertinent history Past Surgical history: No additional pertinent history Social history: No additional pertinent history Family history: No additional pertinent history PHYSICAL EXAM General: AOx4, GCS = 15, moderate distress HEENT: dry mucous membrane Neck: supple, no meningismus, no Kernig or Brudzinski Cardiac: S1S2 RRR Respiratory: CTAB, no crackles or rales, no wheezing Abdomen: Soft, nontender, no rebound or guarding, nondistended, no pulsatile mass. Back: nontender Musculoskeletal: NVI distally, normal strength with flexion/extension to left index finger at the MCP/PIP/DIP joint. nml opposition /abduction /adduction, cap refill < 2seconds to left index finger. hyperpigmented to left MCP joint with soft tissue swelling. Neuro: No focal deficits Left Finger-Index Pain Score (Numeric/FACES): 6 - Related Data Allergies Allergy/AdvReac Type Severity Reaction Status Date / Time cefazolin sodium [From [facility]] Allergy Hives Verified 07/12/20 21:52 morphine Allergy Other Verified 07/12/20 21:52 tramadol Allergy "itchy Verified 07/12/20 21:52 nose" Home Meds: Home Meds Metoprolol Succinate [Toprol XL 100mg] 100 mg PO DAILY 05/04/14 [History] Omeprazole Magnesium [Prilosec Otc] 20 mg PO DAILY 02/14/16 [History] Amitriptyline HCl 100 mg PO DAILY 02/23/16 [History] Rosuvastatin Calcium [Crestor] 10 mg PO BEDTIME 02/23/16 [History] Lisinopril 2.5 mg PO BEDTIME 04/29/18 [History] oxyCODONE HCl/Acetaminophen [Endocet 10-325 mg Tablet] 10 mg PO ASDIRECTED PRN 04/29/18 [History] oxyCODONE ER [OxyCONTIN] 10 mg PO ASDIRECTED PRN 01/29/19 [History] Past Medical History HEENT History: Reports: Allergic Rhinitis, Impaired Vision, Other (See Below) Other HEENT History: wears glasses Cardiovascular History: Reports: High Cholesterol, Hypertension Other Cardiovascular History: 'rapid heartbeat" Respiratory History: Reports: Sleep Apnea Other Respiratory History: uses CPAP Gastrointestinal History: Reports: GERD Genitourinary History: Reports: Renal Calculus Musculoskeletal History: Reports: Back Pain, Chronic, Fracture, Osteoarthritis, Other (See Below) Other Musculoskeletal History: 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), uses cane Neurological History: Reports: Migraines, Other (See Below) Other Neuro History: 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 Both treated with outpatient oral antibiotics - Past Surgical History HEENT Surgical History: Reports: None Cardiovascular Surgical History: Reports: Other (See Below) Other Cardiovascular Surgeries/Procedures: shunt in R hip GI Surgical History: Reports: Hernia, Inguinal Other GI Surgeries/Procedures: L groin hernia repair, excision of pilonidal cyst Male Surgical History: Reports: Vasectomy Other Male Surgeries/Procedures: vasectomy Neurological Surgical History: Reports: Lumbar Spine, Spinal Fusion Other Neurological Surgeries/Procedures: lower Lumbar intrabody fusion with plate, Musculoskeletal Surgical History: Reports: Arthroscopic Procedure, Other (See Below) Other Musculoskeletal Surgeries/Procedures:: surgery on right fx ulna, rt hip surgery, Dermatological Surgical History: Reports: None Social & Family History - Family History Family Medical History: No Pertinent Family History GI: Reports: Pancreatitis : Reports: Renal Calculus Musculoskeletal: Reports: None Hematologic: Reports: None - Caffeine Use Caffeine Use: Reports: None Review of Systems - Review of Systems Review Of Systems: See Below (see dictation) ED EXAM, GENERAL - Physical Exam Exam: See Below (see dictation) ED TRAUMA EXTREMITY PROCEDURES - Splinting Left Upper Extremity Pre-Procedure NV Status: Normal Post-Procedure NV Status: Normal Splint Material: Fiberglass Splint Design: Volar Applied & Form Fitted By: Nurse Provider Post-Splint Application NV Check: NV Status Normal, Good Position Complications: No Progress/Comments: Splint: Volar splint Indication: Left second digit metacarpal head fracture How will this benefit patient: immobilization Duration: 7 days Course - Vital Signs Last Recorded V/S: Last Vital Signs Temp 96.6 F L 07/12/20 21:48 Pulse 101 H 07/12/20 21:48 Resp 14 07/12/20 21:48 BP 129/86 07/12/20 21:48 Pulse Ox 97 07/12/20 21:48 - Orders/Labs/Meds Orders: Active Orders 24 hr Category Date Time Status DME for Discharge [COMM] Stat Oth 07/12/20 22:18 Ordered - Re-Assessments/Exams Free Text/Narrative Re-Assessment/Exam: 07/12/20 22:20 After volar splint in the ER, the patient improved and is currently stable for discharge. I performed a repeat exam and did not appreciate new abnormal findings. Patient exhibits normal vital signs and has a normal gait on road test. I advised the patient to return to the ER for reevaluation if symptoms worsened, including fever, worsening pain, or any other worrisome symptoms. I instructed the patient to follow up with orthopedic hand in 1 week. MEDICAL DECISION MAKING: I reviewed the patients past medical records, lab and radiographic findings. I discussed the case with the patient. My differential diagnosis included: Tendon injury, avulsion fracture, dislocation. He had full range at all joints at full strength for his left index finger, I do not suspect tendon injury or rupture. X-ray demonstrated avulsion fracture to the metatarsal head, he was splinted in a volar splint, and was subsequently neurovascular intact distally, stable for outpatient follow-up with orthopedic hand in 1 week. Departure - Departure Time of Disposition: 22:22 Disposition: Home, Self-Care 01 Condition: Good Clinical Impression: Closed fracture of head of metacarpal bone - Discharge Information *PRESCRIPTION DRUG MONITORING PROGRAM REVIEWED*: Not Applicable *COPY OF PRESCRIPTION DRUG MONITORING REPORT IN PATIENT YAMILETH: Not Applicable Instructions: Cast or Splint Care, Adult, [id number], Metacarpal Fracture, [id number] Referrals: Ugo French [Ordering Only Provider] - 1 Week Edgardo Waller MD [Ordering Only Provider] - 1 Week Forms: ED Department Discharge Additional Instructions: The need for follow-up, as well as the timing and circumstances, are variable depending upon the specifics of your emergency department visit. If you don't have a primary care physician on staff, we will provide you with a referral. We always advise you to contact your personal physician following an emergency department visit to inform them of the circumstance of the visit and for follow-up with them and/or the need for any referrals to a consulting specialist. The emergency department will also refer you to a specialist when appropriate. This referral assures that you have the opportunity for follow-up care with a specialist. All of these measure are taken in an effort to provide you with opti mal care, which includes your follow-up. Under all circumstances we always encourage you to contact your private physician who remains a resource for coordinating your care. When calling for follow-up care, please make the office aware that this follow-up is from your recent emergency room visit. If for any reason you are refused follow-up, please contact the [facility] Emergency Department at and asked to speak to the emergency department charge nurse. please follow up with hand orthopedics as provided in your discharge instructions in 1 week. Sepsis Event Note (ED) - Focused Exam Vital Signs: Vital Signs Temp Pulse Resp BP Pulse Ox 07/12/20 21:48 96.6 F L 101 H 14 129/86 97 - My Orders Last 24 Hours: My Active Orders 07/12/20 22:18 DME for Discharge [COMM] Stat - Assessment/Plan Last 24 Hours: My Active Orders 07/12/20 22:18 DME for Discharge [COMM] Stat
--- NOTE | 2020-07-12 22:05 | CR ---
INDICATION: Left distal 2nd metacarpal hand pain TECHNIQUE: Hand radiograph 3 views left COMPARISON: 01/29/2019 FINDINGS: Bone: A small osseous fragment is seen along the ulnar base of the 2nd proximal phalanx, likely due to an avulsion fracture. The fracture fragment is only seen on the frontal view. Joint: The carpal and metacarpal-phalangeal joints are unremarkable in appearance. The interphalangeal joints are normal in appearance. Soft tissue: Unremarkable. No radiopaque foreign bodies are seen. IMPRESSION: 1. A small osseous fragment is seen along the ulnar base of the 2nd proximal phalanx, likely due to an avulsion fracture. Dictated by Ranjan Mcdermott MD @ 07/12/2020 10:03:46 PM Dictated by: Ranjan Mcdermott MD @ 07/12/2020 22:03:49 (Electronically Signed)
[2020-07-12 23:04] VITALS: BP 118/82; PULSE 85
== END 2020-07-12 23:00 | disposition home or self-care (01) ==
LOC: MW.ED 21:00
DX: S62.311A Displaced fracture of base of second metacarpal bone, left hand, initial encounter for closed fracture (principal); E78.00 Pure hypercholesterolemia, unspecified; I10 Essential (primary) hypertension; K21.9 Gastro-esophageal reflux disease without esophagitis; F32.9 Major depressive disorder, single episode, unspecified; E11.9 Type 2 diabetes mellitus without complications; E66.9 Obesity, unspecified; Z88.1 Allergy status to other antibiotic agents; Z88.5 Allergy status to narcotic agent; W23.0XXA Caught, crushed, jammed, or pinched between moving objects, initial encounter
CPT/HCPCS: 29125; 73130-26-LT; 73130-LT; 99282; 99283-25

== ENCOUNTER 2020-08-20 23:18 | Emergency (ER) | payer MEDICARE ==
[2020-08-21 00:05] VITALS: BP 145/104; PULSE 71
[2020-08-21] MEDS ORDERED: traMADol 50 MG Tab PO ONE (00:15)
--- NOTE | 2020-08-21 00:54 | CR ---
INDICATION: Hand injury today TECHNIQUE: Hand radiograph 3 views left COMPARISON: None FINDINGS: Bone: There is suspected cortical discontinuity along the aspect of the 2nd proximal phalanx along its articular surface. Joint: The carpal and metacarpal-phalangeal joints are unremarkable in appearance. The interphalangeal joints are normal in appearance. Soft tissue: Unremarkable. No radiopaque foreign bodies are seen. IMPRESSION: 1. There is suspected cortical discontinuity along the aspect of the 2nd proximal phalanx along its articular surface. Correlation with physical exam for focal tenderness in this region is recommended to exclude an acute fracture. Dictated by Ranjan Mcdermott MD @ 08/21/2020 12:53:18 AM Dictated by: Ranjan Mcdermott MD @ 08/21/2020 00:53:22 (Electronically Signed)
--- NOTE | 2020-08-21 01:05 | EDM.PDOC ---
ED HPI GENERAL MEDICAL PROBLEM - General Chief Complaint: Upper Extremity Injury/Pain Stated Complaint: LT KNUCKLE INJURY Time Seen by Provider: 08/21/20 00:14 - History of Present Illness INITIAL COMMENTS - FREE TEXT/NARRATIVE: HISTORY AND PHYSICAL: History of present illness: This is a 40-year-old gentleman with a history significant for fracture at the base of his proximal phalanx of his index finger on his left hand that occurred several weeks ago. Patient has been seen and evaluate by orthopedics and is currently in a splint for this. Patient presents ER today secondary to pain at the base of his third MCP of his left hand that occurred while he was trying to catch his . He reports that her head pinned his hand against the wall and he incurred pain after that. Review of systems: As per history of present illness and below otherwise all systems reviewed and negative. Past medical history: As per history of present illness and as reviewed below otherwise noncontributory. Surgical history: As per history of present illness and as reviewed below otherwise noncontributory. Social history: No reported history of drug or alcohol abuse. Family history: As per history of present illness and as reviewed below otherwise noncontributory. Physical exam: Constitutional: Patient is oriented to person, place, and time. Appears well- developed and well-nourished. No distress. HEENT: Moist mucous membranes Head: Normocephalic and atraumatic Eyes: Right eye exhibits no discharge. Left eye exhibits no discharge. No scleral icterus Neck: Normal range of motion. No tracheal deviation present. Cardiovascular: Normal rate and regular rhythm. Pulmonary: Effort normal, no respiratory distress. Abdominal: No distention Musculoskeletal: Normal range of motion Neurologic: Alert and oriented to person, place and time. Skin: [place], warm and dry. Psychiatric: Normal mood and affect. Behavior is normal. Judgment and thought content normal. Nursing note and vital signs have been reviewed This patient was seen and evaluated during the 2019 SARS-CoV-2 novel coronavirus pandemic period. Community viral transmission is ongoing at time of this encounter and the emergency department is operating under pandemic response procedures. Patient with tenderness to palpation to his third MCP region. No deformity or soft tissue swelling is identified. Diagnostics: X-ray of left hand reveals a cortical irregularity at the base of the second MCP. No acute fracture or abnormalities identified at the base of his third MCP. Therapeutics: Ultram 50 mg p.o. Assessment and plan: 40-year-old gentleman who presents ER today secondary to pain to his second and third MCP of his left hand. Patient has a history of a recent fracture of his left second MCP. Patient's x-ray does not reveal any acute pathology at this time. Patient be placed back in a splint will be instructed to follow-up with his orthopedic doctor this week. Patient has taken a Percocet prior to arrival and was given Ultram here in the ED. Reassessment at the time of disposition demonstrates that the patient is in no acute distress. The patient has remained stable throughout the entire ED visit and is without objective evidence for acute process requiring urgent intervention or hospitalization. The patient is stable for discharge, counseling is provided as documented above, discussed symptomatic treatment and specific conditions for return. I have spoken with the patient/caregiver and discussed todays findings, in addition to providing specific details for the plan of care. Questions are answered and there is agreement with the plan. Definitive disposition and diagnosis as appropriate pending reevaluation and review of above. Left Finger-Index Pain Score (Numeric/FACES): 7 - Related Data Allergies Allergy/AdvReac Type Severity Reaction Status Date / Time cefazolin sodium [From Ancef] Allergy Hives Verified 08/21/20 00:05 morphine Allergy Other Verified 08/21/20 00:05 tramadol Allergy "itchy Verified 08/21/20 00:05 nose" Home Meds: Home Meds Metoprolol Succinate [Toprol XL 100mg] 100 mg PO DAILY 05/04/14 [History] Omeprazole Magnesium [Prilosec Otc] 20 mg PO DAILY 02/14/16 [History] Amitriptyline HCl 100 mg PO DAILY 02/23/16 [History] Rosuvastatin Calcium [Crestor] 10 mg PO BEDTIME 02/23/16 [History] Lisinopril 2.5 mg PO BEDTIME 04/29/18 [History] oxyCODONE HCl/Acetaminophen [Endocet 10-325 mg Tablet] 10 mg PO ASDIRECTED PRN 04/29/18 [History] oxyCODONE ER [OxyCONTIN] 10 mg PO ASDIRECTED PRN 01/29/19 [History] Past Medical History HEENT History: Reports: Allergic Rhinitis, Impaired Vision, Other (See Below) Other HEENT History: wears glasses Cardiovascular History: Reports: High Cholesterol, Hypertension Other Cardiovascular History: 'rapid heartbeat" Respiratory History: Reports: Sleep Apnea Other Respiratory History: uses CPAP Gastrointestinal History: Reports: GERD Genitourinary History: Reports: Renal Calculus Musculoskeletal History: Reports: Back Pain, Chronic, Fracture, Osteoarthritis, Other (See Below) Other Musculoskeletal History: 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), uses cane Neurological History: Reports: Migraines, Other (See Below) Other Neuro History: 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 Both treated with outpatient oral antibiotics - Past Surgical History Head Surgeries/Procedures: Reports: None HEENT Surgical History: Reports: None Cardiovascular Surgical History: Reports: Other (See Below) Other Cardiovascular Surgeries/Procedures: shunt in R hip GI Surgical History: Reports: Hernia, Inguinal Other GI Surgeries/Procedures: L groin hernia repair, excision of pilonidal cyst Male Surgical History: Reports: Vasectomy Other Male Surgeries/Procedures: vasectomy Neurological Surgical History: Reports: Lumbar Spine, Spinal Fusion Other Neurological Surgeries/Procedures: lower Lumbar intrabody fusion with plate, Musculoskeletal Surgical History: Reports: Arthroscopic Procedure, Other (See Below) Other Musculoskeletal Surgeries/Procedures:: surgery on right fx ulna, rt hip surgery, Dermatological Surgical History: Reports: None Social & Family History - Family History Family Medical History: No Pertinent Family History GI: Reports: Pancreatitis : Reports: Renal Calculus Musculoskeletal: Reports: None Hematologic: Reports: None - Tobacco Use Tobacco Use Status *Q: Never Tobacco User Second Hand Smoke Exposure: No - Caffeine Use Caffeine Use: Reports: None - Recreational Drug Use Recreational Drug Use: No Review of Systems - Review of Systems Review Of Systems: See Below ED EXAM, GENERAL - Physical Exam Exam: See Below Course - Vital Signs Last Recorded V/S: Last Vital Signs Temp 96.0 F L 08/20/20 23:56 Pulse 71 08/20/20 23:56 Resp 20 08/20/20 23:56 BP 145/104 H 08/20/20 23:56 Pulse Ox - Orders/Labs/Meds Meds: Medications Discontinued Medications Generic Name Dose Route Start Last Admin Trade Name Tory PRN Reason Stop Dose Admin Tramadol HCl 50 mg 08/21/20 00:15 08/21/20 00:24 Ultram PO 08/21/20 00:16 50 mg ONETIME ONE Administration Departure - Departure Time of Disposition: 01:04 Disposition: Home, Self-Care 01 Condition: Good Clinical Impression: Contusion of hand, left Qualifiers: Encounter type: initial encounter Qualified Code(s): S60.222A - Contusion of left hand, initial encounter - Discharge Information Instructions: Hand Contusion Referrals: Aysha Foreman DO [Primary Care Provider] - Additional Instructions: You were seen and evaluated in ER today secondary to pain to your left hand. The x-ray does not reveal any acute fractures or findings. Please keep your splint on and make an appointment to see orthopedic doctor next week. The following information is given to patients seen in the emergency department who are being discharged to home. This information is to outline your options for follow-up care. We provide all patients seen in our emergency department with a follow-up referral. The need for follow-up, as well as the timing and circumstances, are variable depending upon the specifics of your emergency department visit. If you don't have a primary care physician on staff, we will provide you with a referral. We always advise you to contact your personal physician following an emergency department visit to inform them of the circumstance of the visit and for follow-up with them and/or the need for any referrals to a consulting specialist. The emergency department will also refer you to a specialist when appropriate. This referral assures that you have the opportunity for follow-up care with a specialist. All of these measure are taken in an effort to provide you with optimal care, which includes your follow-up. Under all circumstances we always encourage you to contact your private physician who remains a resource for coordinating your care. When calling for follow-up care, please make the office aware that this follow-up is from your recent emergency room visit. If for any reason you are refused follow-up, please contact the [facility] Emergency Department at and asked to speak to the emergency department charge nurse. [facility] [address] [place] [address] [id number] Sepsis Event Note (ED) - Evaluation Sepsis Screening Result: No Definite Risk - Focused Exam Vital Signs: Vital Signs Temp Pulse Resp BP 08/20/20 23:56 96.0 F L 71 20 145/104 H
== END 2020-08-21 01:20 | disposition home or self-care (01) ==
LOC: MW.ED 23:18
DX: S60.222A Contusion of left hand, initial encounter (principal); I10 Essential (primary) hypertension; E78.00 Pure hypercholesterolemia, unspecified; K21.9 Gastro-esophageal reflux disease without esophagitis; E11.9 Type 2 diabetes mellitus without complications; E66.9 Obesity, unspecified; Z88.5 Allergy status to narcotic agent; Z88.1 Allergy status to other antibiotic agents; Z79.899 Other long term (current) drug therapy; X58.XXXA Exposure to other specified factors, initial encounter
CPT/HCPCS: 73130; 99283; A9270; 99282

== ENCOUNTER 2024-02-05 18:37 | Emergency (ER) | payer MEDICARE, MEDICAID ==
[2024-02-05 19:09] VITALS: BP 150/88; PULSE 103
[2024-02-05 19:43] LABS: APPEARANCE,URINE CLEAR; BILIRUBIN,URINE NEGATIVE (NEGATIVE); COLOR,URINE YELLOW; GLUCOSE,URINE 500 mg/dL (NEGATIVE); KETONES,URINE NEGATIVE (NEGATIVE); LEUKOCYTE ESTERASE,URINE NEGATIVE (NEGATIVE); NITRITE,URINE NEGATIVE (NEGATIVE); OCCULT BLOOD,URINE MODERATE (NEGATIVE); PROTEIN,URINE NEGATIVE (NEGATIVE); UROBILINOGEN,URINE 0.2 EU/dL (<2.0)
[2024-02-05 19:49] LABS: BACTERIA,URINE RARE (NEGATIVE); EPITHELIAL CELLS,URINE RARE (NONE-FEW)
[2024-02-05 20:26] LABS: BASOPHILS ABSOLUTE AUTO 0.03 K/uL (0.00-0.20); BASOPHILS PERCENT AUTO 0.2 % (0.0-1.0); EOSINOPHILS ABSOLUTE AUTO 0.03 K/uL (0.00-0.45); EOSINOPHILS PERCENT AUTO 0.2 % (0.0-6.0); HEMATOCRIT 45.6 % (42.0-52.0); HEMOGLOBIN 15.9 g/dL (14.0-18.0); IMMATURE GRAN ABSOLUTE AUTO 0.03 K/uL (0.00-0.05); IMMATURE GRAN PERCENT AUTO 0.2 % (0.0-0.4); LYMPHOCYTES ABSOLUTE AUTO 2.03 K/uL (1.00-4.80); LYMPHOCYTES PERCENT AUTO 14.6 % (24.0-44.0); MEAN CORPUSCULAR HEMOGLOBIN 29.3 pg (28.0-32.0); MEAN CORPUSCULAR HGB CONC 34.9 g/dL (32.0-36.0); MEAN CORPUSCULAR VOLUME 84.1 fL (83.0-99.0); MEAN PLATELET VOLUME 10.3 fL (9.4-12.4); MONOCYTES ABSOLUTE AUTO 1.11 K/uL (0.00-0.80); NEUTROPHILS ABSOLUTE AUTO 10.68 K/uL (1.80-7.70); NEUTROPHILS PERCENT AUTO 76.8 % (41.0-71.0); PLATELET COUNT,PLT 259 K/uL (150-400); RED BLOOD CELL COUNT 5.42 M/uL (4.52-5.90); WHITE BLOOD CELL COUNT,WBC 13.91 K/uL (3.9-11.3)
[2024-02-05] MEDS: Ketorolac 30 MG/ML SDV IVPUSH ONE (20:35)
[2024-02-05] MEDS: Ondansetron 4 MG/2 ML SDV IVPUSH ONE (20:36)
[2024-02-05] MEDS: HYDROmorphone 1 MG/ML Syringe IVPUSH ONE (20:37)
[2024-02-05] MEDS: Sodium Chloride 0.9% 1,000 ML IV ONE (20:39)
[2024-02-05 22:44] LABS: ALBUMIN 4.1 g/dL (3.4-5.0); BILIRUBIN TOTAL 0.5 mg/dL (0.2-1.0); CALCIUM 9.1 mg/dL (8.5-10.1); CARBON DIOXIDE,CO2 21.7 mmol/L (21.0-32.0); CREATININE 1.3 mg/dL (0.8-1.3); EST CRCL DRUG DOSING (CG) 64.39 mL/min; POTASSIUM,K 4.2 mmol/L (3.5-5.1); PROTEIN TOTAL,TP 8.1 g/dL (6.4-8.2)
== END 2024-02-05 21:34 | disposition home or self-care (01) ==
LOC: MW.ED 18:37
DX: N13.2 Hydronephrosis with renal and ureteral calculous obstruction (principal); K21.9 Gastro-esophageal reflux disease without esophagitis; E11.9 Type 2 diabetes mellitus without complications; E66.9 Obesity, unspecified; Z79.899 Other long term (current) drug therapy; Z79.84 Long term (current) use of oral hypoglycemic drugs; Z88.5 Allergy status to narcotic agent; Z88.6 Allergy status to analgesic agent; Z88.8 Allergy status to other drugs, medicaments and biological substances; Z68.37 Body mass index [BMI] 37.0-37.9, adult
CPT/HCPCS: 36415; 74176; 80053; 81001; 85025; 96361; 96374; 96375; 99284; J1170; J1885; J2405; J7030

== ENCOUNTER 2025-04-18 03:08 | Emergency (ER) | payer MEDICARE, MEDICAID ==
[2025-04-18 05:13] VITALS: BP 140/95; PULSE 102
== END 2025-04-18 05:11 | disposition home or self-care (01) ==
LOC: MW.ED 03:08
DX: S93.401A Sprain of unspecified ligament of right ankle, initial encounter (principal); S80.01XA Contusion of right knee, initial encounter; E11.9 Type 2 diabetes mellitus without complications; E66.9 Obesity, unspecified; K21.9 Gastro-esophageal reflux disease without esophagitis; M19.90 Unspecified osteoarthritis, unspecified site; Z79.899 Other long term (current) drug therapy; Z88.8 Allergy status to other drugs, medicaments and biological substances; Z68.38 Body mass index [BMI] 38.0-38.9, adult; W19.XXXA Unspecified fall, initial encounter
CPT/HCPCS: 73562; 73590; 73600; 73620; 96372; 99283; A9270; J1171